=== PATIENT | female | born 1995 | race Caucasian/White ===

== ENCOUNTER → 2019-11-16 | Day surgery (SDC) | payer BC ==
[2019-11-14 12:52] VITALS: BMI 27.1
[~2019-11-16] MED LIST: SODIUM CHLORIDE 0.9% 1,000 ML IV SCH
[2019-11-16 08:16] VITALS: BP 130/76; PULSE 104; RESP 18; TEMP 97.8
--- NOTE | 2019-11-16 13:29 | P.PCN ---
Preoperative Diagnosis: Indication: Syncope 12-lead EKG initially shows 4 beats of a slow atrial tachycardia with negative P waves inferiorly, converted spontaneously to sinus mechanism with normal PA interval, narrow QRS, normal ST segments, normal QT interval, no delta or epsilon waves Baseline blood pressure is 118/66, baseline heart is 82 bpm. Patient was tilted upright at a 70 angle per protocol. Immediately upon upright tilting blood pressure dropped to 53/34 and her pulse went up to 133 bpm, she felt dizzy and was near syncopal. She her blood pressure slowly normalized and pulse came down to the 90s. About 30 minutes later her blood pressure again dropped to 66/46, this drop in blood pressure was proceeded by sinus tachycardia in the 100s and the patient again was presyncopal. She was laid flat and her blood pressure normalized. Supine her blood pressure was 125/71 and pulse was 75. Impression Slow atrial tachycardia, spontaneous termination to sinus rhythm Otherwise normal EKG Neurocardiogenic syncope
== END ==
LOC: CATHEP 07:47
PROVIDERS: ATTEND Internal Medicine Clinical Cardiac Electrophysiology
DX: R55 Syncope and collapse (principal); I47.1 Supraventricular tachycardia; R45.89 Other symptoms and signs involving emotional state; Z97.5 Presence of (intrauterine) contraceptive device
CPT/HCPCS: 81025; 93660

== ENCOUNTER → 2020-01-31 | Outpatient (CLI) | payer BC | END | disposition home or self-care (01) | LOC: LABWHC1 07:22 | PROVIDERS: ATTEND Internal Medicine | DX: R50.9 Fever, unspecified (principal); R05 Cough | CPT/HCPCS: 87635 ==

== ENCOUNTER → 2020-04-18 | Outpatient (CLI) | payer BC | END | disposition home or self-care (01) | LOC: LABWHC1 13:14 | PROVIDERS: ATTEND Internal Medicine | DX: R05 Cough (principal) | CPT/HCPCS: U0003; C9803 ==

== ENCOUNTER → 2020-06-12 | Outpatient (CLI) | payer BC | END | disposition home or self-care (01) | LOC: LABWHC1 13:10 | PROVIDERS: ATTEND Internal Medicine | DX: Z20.828 Contact with and (suspected) exposure to other viral communicable diseases (principal) | CPT/HCPCS: U0003; C9803 ==